=== PATIENT | female | born 1960 | race Caucasian/White ===

== ENCOUNTER 2023-09-28 11:04 | Outpatient (CLI) | payer MEDICARE, BC ==
[~2023-09-28] VITALS: Ht 162.6 cm; Wt 51.4 kg
[2023-09-28] VITALS (7 sets, daily range): BP systolic 104–125; BP diastolic 46–62; PULSE 67–83; TEMP 98.6
[2023-09-28] MEDS ORDERED: VANCOCIN H125 MG/CAP PO (11:37)
[2023-09-28] MEDS ORDERED: SYNTHROID0.05 MG/TA PO (11:38)
--- NOTE | 2023-09-28 13:25 | NUR ---
Pt tolerated infusion without issue. She ate muffin during infusion, denied other needs or concerns. IV DC'd, site wrapped with coban. Pt is escorted out to ED entrance to meet . She is free of complaints at time of discharge. Pt education packet about infusion was provided to pt prior to start of infusion.
== END 2023-09-28 13:25 | disposition home or self-care (01) ==
LOC: EUO 11:04
DX: A49.8 Other bacterial infections of unspecified site (principal)
CPT/HCPCS: J0565